=== PATIENT | female | born 1990 | race Caucasian/White ===

== ENCOUNTER → 2018-05-30 | Outpatient (CLI) | payer BC ==
[~2018-05-30] MED LIST: AUGMENTIN 875 M1 TA1 PO; MOTRIN PEDIA40 MG/ML PO; NKHM; TYLENOL325 M1 PO
== END | disposition home or self-care (01) ==
LOC: US 14:30
DX: O26.841 Uterine size-date discrepancy, first trimester (principal); Z3A.13 13 weeks gestation of pregnancy

== ENCOUNTER 2023-06-15 04:18 | Emergency (ER) | payer OTHER ==
[~2023-06-15] VITALS: Ht 170.1 cm; Wt 83.0 kg
[2023-06-15 04:51] LABS: BASO % 0.3 % (0.0-1.0); EOS # 0.2 10*3/uL (0.0-0.4); EOS % 1.5 % (1.0-4.0); HEMATOCRIT 38.3 % (37.0-47.0); LYMPH # 1.7 10*3/uL (1.3-4.4); LYMPH % 17.4 % (27.0-41.0); MEAN CELL VOLUME 91.2 fl (81.0-99.0); MEAN CORPUSCULAR HGB CONC 33.9 g/dl (33.0-37.0); MEAN PLATELET VOLUME 9.8 fl (9.6-12.3); MONO # 0.9 10*3/uL (0.1-1.0); MONO % 9.5 % (3.0-9.0); NEUT # 6.9 10*3/uL (2.3-7.9); PLATELET COUNT AUTOMATED 202 10*3/uL (130-400); RED CELL DISTRI WIDTH 12.7 % (0-14.5); WHITE BLOOD COUNT 9.7 10*3/uL (4.8-10.8)
== END 2023-06-15 06:35 | disposition home or self-care (01) ==
LOC: ED 04:18
PROVIDERS: Internal Medicine
DX: J02.9 Acute pharyngitis, unspecified (principal); Z98.890 Other specified postprocedural states; R13.10 Dysphagia, unspecified; Z20.822 Contact with and (suspected) exposure to COVID-19